=== PATIENT | male | born 1930 | race Hispanic/Latino ===

== ENCOUNTER 2018-06-06 16:44 | Inpatient (IN) | payer MEDICARE ==
[~2018-06-06] VITALS: Ht 167.6 cm; Wt 65.1 kg
[2018-06-06 17:54] LABS: APPEARANCE,URINE Clear (CLEAR); BILIRUBIN,URINE Negative (NEGATIVE); COLOR,URINE Yellow (YELLOW); GLUCOSE, URINE (UA) Negative (NEGATIVE); KETONES,URINE Negative (NEGATIVE); LEUKOCYTE ESTERASE ,URINE Negative (NEGATIVE); NITRATE,URINE Negative (NEGATIVE); OCCULT BLOOD,URINE Trace (NEGATIVE); PROTEIN,URINE POS 2+ (NEGATIVE); UROBILINOGEN,URINE 0.2 mg/dL (0.2-1.0)
[2018-06-06 17:58] LABS: BASOPHILS % (AUTO) 0.3 % (0.0-5.0); EOSINOPHILS % (AUTO) 1.3 % (0.0-8.0); HEMATOCRIT 27.5 % (42-54); LYMPHOCYTES % (AUTO) 27.8 % (21.0-51.0); MEAN CORPUSCULAR HEMOGLOBIN 32.7 pg (27.0-33.0); MEAN CORPUSCULAR HGB CONC 33.3 g/dL (32.0-36.0); MEAN CORPUSCULAR VOLUME 98.3 fL (79-99); MONOCYTES % (AUTO) 6.8 % (3.0-13.0); NEUTROPHILS % (AUTO) 63.8 % (40.0-77.0); PLATELET COUNT (AUTO) 132 K/uL (130-400); RED CELL DISTRIBUTION WIDTH 14.1 % (11.0-15.5); WHITE BLOOD COUNT (AUTO) 7.1 K/uL (4.8-10.8)
[2018-06-06 18:02] LABS: CREATININE 2.1 mg/dL (0.5-1.5); INR 1.04 (0.85-1.15); PARTIAL THROMBOPLASTIN TIME 29.3 SEC (26.3-35.5); POTASSIUM 4.8 mmol/L (3.5-5.1); PROTHROMBIN TIME 10.9 SEC (9.6-11.6)
[2018-06-06 18:06] LABS: ALBUMIN 3.9 g/dL (3.5-5.0); BILIRUBIN,TOTAL 0.4 mg/dL (0.2-1.0); TOTAL PROTEIN, SERUM 7.8 g/dL (6.0-8.3)
[2018-06-06 18:10] LABS: BACTERIA,URINE None Seen /HPF (None Seen); MUCUS,URINE Rare LPF (None Seen); RBC,URINE 0-1 /HPF (0-1); SQUAMOUS EPITHELIAL CELL,UR 0-2 /HPF (0-2); WBC,URINE 0-1 /HPF (0-1)
[2018-06-06] MEDS ORDERED: ENOXAPARIN SODIUM 40 MG/0.4 ML SYRINGE SQ ONE (19:08)
[2018-06-06] MEDS ORDERED: ENOXAPARIN SODIUM 30 MG/0.3 ML SQ ONE (19:09)
[2018-06-06 23:40] VITALS: BP 157/69
[2018-06-07 04:00] VITALS: BP 119/43
[2018-06-07 04:03] LABS: BASOPHILS % (AUTO) 0.5 % (0.0-5.0); EOSINOPHILS % (AUTO) 2.5 % (0.0-8.0); HEMATOCRIT 24.6 % (42-54); LYMPHOCYTES % (AUTO) 32.3 % (21.0-51.0); MEAN CORPUSCULAR HEMOGLOBIN 33.4 pg (27.0-33.0); MEAN CORPUSCULAR HGB CONC 34.2 g/dL (32.0-36.0); MEAN CORPUSCULAR VOLUME 97.9 fL (79-99); MONOCYTES % (AUTO) 8.4 % (3.0-13.0); NEUTROPHILS % (AUTO) 56.3 % (40.0-77.0); PLATELET COUNT (AUTO) 135 K/uL (130-400); RED BLOOD CELL COUNT(AUTO) 2.51 MIL/uL (4.50-6.20); WHITE BLOOD COUNT (AUTO) 6.1 K/uL (4.8-10.8)
[2018-06-07 04:25] LABS: CREATININE 1.9 mg/dL (0.5-1.5); POTASSIUM 5.2 mmol/L (3.5-5.1)
[2018-06-07] MEDS ORDERED: LOSA25TA16 PO (05:31)
[2018-06-07] MEDS ORDERED: MULT-1289 PO (05:31)
[2018-06-07] MEDS ORDERED: LEVO50 PO (05:31)
[2018-06-07] MEDS ORDERED: FERR-82 PO (05:31)
[2018-06-07 08:03] VITALS: BP 141/54
[2018-06-07] MEDS: PANTOPRAZOLE SODIUM 40 MG TABLET.DR PO SCH (09:16)
[2018-06-07] MEDS: CLOPIDOGREL BISULFATE 75 MG TAB PO SCH (09:16)
[2018-06-07] MEDS: ENOXAPARIN SODIUM 80 MG/0.8 ML SQ SCH ×2 (09:17→21:07)
[2018-06-07 12:47] VITALS: BP 136/57
[2018-06-07 16:00] VITALS: BP 144/54
[2018-06-07] MEDS ORDERED: WARFARIN SODIUM 5 MG TAB PO SCH (18:15)
[2018-06-07 19:45] VITALS: BP 157/64
[2018-06-07 23:48] VITALS: BP 126/55
[2018-06-08 03:56] VITALS: BP 120/52
[2018-06-08 04:06] LABS: HEMATOCRIT 25.2 % (42-54); MEAN CORPUSCULAR HEMOGLOBIN 32.8 pg (27.0-33.0); MEAN CORPUSCULAR HGB CONC 33.5 g/dL (32.0-36.0); MEAN CORPUSCULAR VOLUME 97.9 fL (79-99); PLATELET COUNT (AUTO) 123 K/uL (130-400); RED BLOOD CELL COUNT(AUTO) 2.58 MIL/uL (4.50-6.20); RED CELL DISTRIBUTION WIDTH 14.6 % (11.0-15.5); WHITE BLOOD COUNT (AUTO) 6.9 K/uL (4.8-10.8)
[2018-06-08 04:15] LABS: INR 1.1 (0.85-1.15); PARTIAL THROMBOPLASTIN TIME 40.1 SEC (26.3-35.5); PROTHROMBIN TIME 11.5 SEC (9.6-11.6)
[2018-06-08 04:16] LABS: CREATININE 1.9 mg/dL (0.5-1.5); POTASSIUM 4.7 mmol/L (3.5-5.1)
[2018-06-08] MEDS: LEVOTHYROXINE 50 MCG TABLET PO SCH (07:03)
[2018-06-08 08:15] VITALS: BP 135/59
[2018-06-08] MEDS: CLOPIDOGREL BISULFATE 75 MG TAB PO SCH (10:01)
[2018-06-08] MEDS: FERROUS SULFATE 325 MG TABLET.DR PO SCH (10:01)
[2018-06-08] MEDS: MULTIVITAMIN TABLET PO SCH (10:01)
[2018-06-08] MEDS: PANTOPRAZOLE SODIUM 40 MG TABLET.DR PO SCH (10:01)
[2018-06-08] MEDS: ENOXAPARIN SODIUM 80 MG/0.8 ML SQ SCH ×2 (10:02→20:41)
[2018-06-08 11:03] VITALS: BP 138/70
[2018-06-08 16:47] VITALS: BP 141/66
[2018-06-08] MEDS: LOSARTAN 50 MG TABLET PO SCH (18:27)
[2018-06-08] MEDS ORDERED: WARFARIN SODIUM 5 MG TAB PO ONE (19:00)
[2018-06-08 19:30] VITALS: BP 147/63
[2018-06-09] VITALS: BP 124/54
[2018-06-09 04:00] VITALS: BP 102/45
[2018-06-09 04:13] LABS: HEMATOCRIT 24.4 % (42-54); MEAN CORPUSCULAR HEMOGLOBIN 33.1 pg (27.0-33.0); MEAN CORPUSCULAR HGB CONC 33.8 g/dL (32.0-36.0); MEAN CORPUSCULAR VOLUME 97.9 fL (79-99); PLATELET COUNT (AUTO) 137 K/uL (130-400); RED BLOOD CELL COUNT(AUTO) 2.49 MIL/uL (4.50-6.20); RED CELL DISTRIBUTION WIDTH 14.5 % (11.0-15.5)
[2018-06-09 04:34] LABS: INR 1.13 (0.85-1.15); PARTIAL THROMBOPLASTIN TIME 41.2 SEC (26.3-35.5); PROTHROMBIN TIME 11.8 SEC (9.6-11.6)
[2018-06-09 04:53] LABS: HEMOGLOBIN A1C 5.4 % (4.0-6.0)
[2018-06-09] MEDS: LEVOTHYROXINE 50 MCG TABLET PO SCH (06:25)
[2018-06-09 08:34] VITALS: BP 133/64
[2018-06-09] MEDS: FERROUS SULFATE 325 MG TABLET.DR PO SCH (09:46)
[2018-06-09] MEDS: CLOPIDOGREL BISULFATE 75 MG TAB PO SCH (09:46)
[2018-06-09] MEDS: PANTOPRAZOLE SODIUM 40 MG TABLET.DR PO SCH (09:46)
[2018-06-09] MEDS: MULTIVITAMIN TABLET PO SCH (09:46)
[2018-06-09] MEDS: LOSARTAN 50 MG TABLET PO SCH (09:46)
[2018-06-09] MEDS: ENOXAPARIN SODIUM 80 MG/0.8 ML SQ SCH ×2 (09:47→21:00)
[2018-06-09 12:00] VITALS: BP 107/50
[2018-06-09 15:59] VITALS: BP 136/54
[2018-06-09] MEDS ORDERED: WARFARIN SODIUM 5 MG TAB PO SCH (16:00)
[2018-06-09] MEDS: WARFARIN SODIUM 5 MG TAB PO SCH (17:17)
[2018-06-09 21:11] VITALS: BP 141/70
[2018-06-10 01:30] VITALS: BP 128/56
[2018-06-10 04:36] LABS: BASOPHILS % (AUTO) 0.3 % (0.0-5.0); EOSINOPHILS % (AUTO) 2.1 % (0.0-8.0); HEMATOCRIT 24.5 % (42-54); LYMPHOCYTES % (AUTO) 40.2 % (21.0-51.0); MEAN CORPUSCULAR HEMOGLOBIN 33.1 pg (27.0-33.0); MEAN CORPUSCULAR VOLUME 97.2 fL (79-99); MONOCYTES % (AUTO) 8.8 % (3.0-13.0); NEUTROPHILS % (AUTO) 48.6 % (40.0-77.0); PLATELET COUNT (AUTO) 123 K/uL (130-400); RED BLOOD CELL COUNT(AUTO) 2.52 MIL/uL (4.50-6.20); RED CELL DISTRIBUTION WIDTH 14.1 % (11.0-15.5); WHITE BLOOD COUNT (AUTO) 6.1 K/uL (4.8-10.8)
[2018-06-10 04:42] LABS: CREATININE 2.1 mg/dL (0.5-1.5); POTASSIUM 4.4 mmol/L (3.5-5.1)
[2018-06-10 04:44] LABS: INR 1.41 (0.85-1.15); PARTIAL THROMBOPLASTIN TIME 49.8 SEC (26.3-35.5); PROTHROMBIN TIME 14.7 SEC (9.6-11.6)
[2018-06-10 05:46] VITALS: BP 114/44
[2018-06-10] MEDS: LEVOTHYROXINE 50 MCG TABLET PO SCH (06:15)
[2018-06-10 08:51] VITALS: BP 147/66
[2018-06-10] MEDS: LOSARTAN 50 MG TABLET PO SCH (10:31)
[2018-06-10] MEDS: CLOPIDOGREL BISULFATE 75 MG TAB PO SCH (10:31)
[2018-06-10] MEDS: FERROUS SULFATE 325 MG TABLET.DR PO SCH (10:31)
[2018-06-10] MEDS: MULTIVITAMIN TABLET PO SCH (10:31)
[2018-06-10] MEDS: PANTOPRAZOLE SODIUM 40 MG TABLET.DR PO SCH (10:31)
[2018-06-10] MEDS: ENOXAPARIN SODIUM 80 MG/0.8 ML SQ SCH ×2 (10:32→21:48)
[2018-06-10 12:08] VITALS: BP 148/65
[2018-06-10] MEDS: WARFARIN SODIUM 5 MG TAB PO SCH (16:04)
[2018-06-10 16:14] VITALS: BP 145/50
[2018-06-10 19:00] VITALS: BP 140/61
[2018-06-11] VITALS: BP 120/52
[2018-06-11 04:00] VITALS: BP 119/49
[2018-06-11 06:07] LABS: BASOPHILS % (AUTO) 0.6 % (0.0-5.0); EOSINOPHILS % (AUTO) 2.6 % (0.0-8.0); HEMATOCRIT 25.5 % (42-54); LYMPHOCYTES % (AUTO) 38.3 % (21.0-51.0); MEAN CORPUSCULAR HEMOGLOBIN 32.8 pg (27.0-33.0); MEAN CORPUSCULAR HGB CONC 33.4 g/dL (32.0-36.0); MEAN CORPUSCULAR VOLUME 98.1 fL (79-99); MONOCYTES % (AUTO) 9.4 % (3.0-13.0); NEUTROPHILS % (AUTO) 49.1 % (40.0-77.0); PLATELET COUNT (AUTO) 137 K/uL (130-400); RED CELL DISTRIBUTION WIDTH 14.2 % (11.0-15.5); WHITE BLOOD COUNT (AUTO) 5.5 K/uL (4.8-10.8)
[2018-06-11 06:22] LABS: CREATININE 2.2 mg/dL (0.5-1.5); POTASSIUM 4.7 mmol/L (3.5-5.1)
[2018-06-11 06:24] LABS: INR 2.22 (0.85-1.15); PARTIAL THROMBOPLASTIN TIME 50.4 SEC (26.3-35.5); PROTHROMBIN TIME 22.9 SEC (9.6-11.6)
[2018-06-11] MEDS: LEVOTHYROXINE 50 MCG TABLET PO SCH (06:30)
[2018-06-11 07:30] VITALS: BP 129/65
[2018-06-11] MEDS: LOSARTAN 50 MG TABLET PO SCH (09:19)
[2018-06-11] MEDS: PANTOPRAZOLE SODIUM 40 MG TABLET.DR PO SCH (09:19)
[2018-06-11] MEDS: FERROUS SULFATE 325 MG TABLET.DR PO SCH (09:19)
[2018-06-11] MEDS: CLOPIDOGREL BISULFATE 75 MG TAB PO SCH (09:19)
[2018-06-11] MEDS: ENOXAPARIN SODIUM 80 MG/0.8 ML SQ SCH (09:19)
[2018-06-11] MEDS: MULTIVITAMIN TABLET PO SCH (09:19)
== END 2018-06-11 10:40 | disposition home or self-care (01) | DRG 299 ==
LOC: EDH 16:44 → EDHIP 19:28 → OBSVTOIN 19:28 → 2DH 23:03 → 3AH 06-08 20:04
PROVIDERS: ADMIT Internal Medicine; ATTEND Internal Medicine
DX: I82.431 Acute embolism and thrombosis of right popliteal vein (principal); N17.0 Acute kidney failure with tubular necrosis; N18.4 Chronic kidney disease, stage 4 (severe); E11.22 Type 2 diabetes mellitus with diabetic chronic kidney disease; I12.9 Hypertensive chronic kidney disease with stage 1 through stage 4 chronic kidney disease, or unspecified chronic kidney disease; E03.9 Hypothyroidism, unspecified; Z79.01 Long term (current) use of anticoagulants
CPT/HCPCS: 36415; 80048; 80053; 81001; 82948; 83036; 85025; 85027; 85610; 85730; 93005; 93971; J1650

== ENCOUNTER 2020-09-19 18:16 | Inpatient (IN) | payer MEDICARE ==
[~2020-09-19] VITALS: Ht 154.9 cm; Wt 59.0 kg
[~2020-09-19 18:16] MED LIST: FERR-82 PO; LEVO50 PO; LOSA25TA41 PO; MULT-1289 PO
[2020-09-19 18:52] LABS: HEMATOCRIT 22.5 % (42-54); LYMPHOCYTES % (AUTO) 6.1 % (21.0-51.0); MEAN CORPUSCULAR HEMOGLOBIN 33.3 pg (27.0-33.0); MEAN CORPUSCULAR HGB CONC 35.1 g/dL (32.0-36.0); MEAN CORPUSCULAR VOLUME 94.9 fL (79-99); MONOCYTES % (AUTO) 6.5 % (3.0-13.0); PLATELET COUNT (AUTO) 84 K/uL (130-400); RED BLOOD CELL COUNT(AUTO) 2.37 MIL/uL (4.50-6.20); RED CELL DISTRIBUTION WIDTH 14.7 % (11.0-15.5); WHITE BLOOD COUNT (AUTO) 8.3 K/uL (4.8-10.8)
[2020-09-19 19:01] LABS: CREATININE 2.9 mg/dL (0.5-1.5); POTASSIUM 4.8 mmol/L (3.5-5.1)
[2020-09-19 19:05] LABS: ALBUMIN 3.2 g/dL (3.5-5.0); BILIRUBIN,TOTAL 0.6 mg/dL (0.2-1.0); TOTAL PROTEIN, SERUM 6.6 g/dL (6.0-8.3)
[2020-09-19 19:36] LABS: MAGNESIUM 1.9 mg/dL (1.80-2.40); PHOSPHORUS 2.9 mg/dL (2.5-4.9)
[2020-09-19 19:57] LABS: APPEARANCE,URINE Cloudy (CLEAR); BILIRUBIN,URINE Negative (NEGATIVE); COLOR,URINE Yellow (YELLOW); GLUCOSE, URINE (UA) Negative (NEGATIVE); KETONES,URINE Negative (NEGATIVE); LEUKOCYTE ESTERASE ,URINE Large (NEGATIVE); NITRATE,URINE Negative (NEGATIVE); OCCULT BLOOD,URINE Small (NEGATIVE); PH,URINE 5.5 (5.0-8.0); PROTEIN,URINE POS 2+ mg/dL (NEGATIVE)
[2020-09-19 20:16] LABS: WBC,URINE 26-50 /HPF (0-1)
[2020-09-19] MEDS ORDERED: CEFTRIAXONE 1G VIAL ONE (20:16)
[2020-09-19 20:17] LABS: BACTERIA,URINE Many /HPF (None Seen); MUCUS,URINE Few LPF (None Seen); SQUAMOUS EPITHELIAL CELL,UR 0-2 /HPF (0-2)
[2020-09-19 22:12] LABS: HEMATOCRIT 21.1 % (42-54)
[2020-09-19] MEDS ORDERED: DIPHENHYDRAMINE HCL 25 MG CAPSULE PO PRN (22:15)
[2020-09-19] MEDS ORDERED: NITROGLYCERIN 0.4 MG SL TAB SL PRN (22:15)
[2020-09-19] MEDS: METOPROLOL TARTRATE 25 MG TAB PO SCH (22:15)
[2020-09-19] MEDS ORDERED: LACTATED RINGERS 1000ML 1,000 ML IV SCH (22:15)
[2020-09-19] MEDS ORDERED: MAG/ALUM/SIMETH 30 ML UDCUP PO PRN (22:15)
[2020-09-19] MEDS ORDERED: CEFTRIAXONE 1G VIAL IV SCH (22:15)
[2020-09-19] MEDS ORDERED: ACETAMINOPHEN 325 MG TAB PO PRN ×2 (22:15)
[2020-09-19] MEDS ORDERED: LACTULOSE 20 GM/30 ML UDCUP PO PRN (22:15)
[2020-09-19] MEDS ORDERED: ONDANSETRON 4MG INJ IV PRN (22:15)
[2020-09-19] MEDS ORDERED: DEXTROSE 50%-WATER 50 ML DISP.SYRIN IV PRN (22:45)
[2020-09-19] MEDS ORDERED: KCL 20 MEQ ERTAB PO PRN (22:45)
[2020-09-19] MEDS ORDERED: POTASSIUM CHLORIDE 10% ELIXIR 20 MEQ/15 ML UDCUP PO PRN (22:45)
[2020-09-19] MEDS ORDERED: POTASSIUM CHLORIDE 20MEQ/100ML 100 ML IV PRN (22:45)
[2020-09-19] MEDS ORDERED: GLUCAGON 1MG KIT 1 MG ML IM PRN (22:45)
[2020-09-19] MEDS ORDERED: INSULIN HUMULIN R 100 UNIT/ML 3ML ONE (22:54)
[2020-09-19] MEDS ORDERED: PHARMACY COMMUNICATION MISC SCH (23:30)
[2020-09-19] MEDS ORDERED: ZOSYN 3.375GM+NS 50ML 50 ML IV ONE (23:40)
[2020-09-19] MEDS ORDERED: LACTATED RINGERS 1000ML 1,000 ML IV ONE (23:40)
[2020-09-19] MEDS ORDERED: 0.9%NACL 100ML 100 ML IV ONE (23:58)
[2020-09-20] MEDS ORDERED: DiphenhydrAMINE HCL 50 MG/ML VIAL ONE (04:14)
[2020-09-20 04:31] LABS: BASOPHILS % (AUTO) 0.1 % (0.0-5.0); HEMATOCRIT 28.8 % (42-54); LYMPHOCYTES % (AUTO) 14.2 % (21.0-51.0); MEAN CORPUSCULAR HEMOGLOBIN 32.2 pg (27.0-33.0); MEAN CORPUSCULAR HGB CONC 34.4 g/dL (32.0-36.0); MEAN CORPUSCULAR VOLUME 93.8 fL (79-99); NEUTROPHILS % (AUTO) 74.5 % (40.0-77.0); PLATELET COUNT (AUTO) 83 K/uL (130-400); RED BLOOD CELL COUNT(AUTO) 3.07 MIL/uL (4.50-6.20); RED CELL DISTRIBUTION WIDTH 14.8 % (11.0-15.5); WHITE BLOOD COUNT (AUTO) 9.3 K/uL (4.8-10.8)
[2020-09-20 04:44] LABS: ALBUMIN 3.3 g/dL (3.5-5.0); BILIRUBIN,TOTAL 0.7 mg/dL (0.2-1.0); CREATININE 2.7 mg/dL (0.5-1.5); CRP QUANTITATIVE 61.1 mg/L (0.00-9.0); POTASSIUM 4.3 mmol/L (3.5-5.1); TOTAL PROTEIN, SERUM 6.9 g/dL (6.0-8.3)
[2020-09-20] MEDS: ZOSYN 3.375GM+NS 50ML 50 ML IV SCH ×3 (05:00→20:42)
[2020-09-20] MEDS ORDERED: HEPARIN 25,000 UNITS/250ML D5W 250 ML IV SCH (05:45)
[2020-09-20] MEDS ORDERED: HEPARIN 25,000 UNITS/250ML D5W 250 ML IV ONE (06:40)
[2020-09-20 07:10] LABS: INR 1.38 (0.85-1.15); PROTHROMBIN TIME 14.3 SEC (9.6-11.6)
[2020-09-20 07:11] LABS: PARTIAL THROMBOPLASTIN TIME 31.5 SEC (26.3-35.5)
[2020-09-20] MEDS: INSULIN HUMULIN R 100 UNIT/ML 3ML SQ SCH ×4 (07:30→20:47)
[2020-09-20] MEDS ORDERED: ENOXAPARIN SODIUM 40 MG/0.4 ML SYRINGE SQ ONE (07:45)
[2020-09-20] MEDS ORDERED: FAMOTIDINE 20MG TAB ONE (07:45)
[2020-09-20] MEDS ORDERED: ASPIRIN 325 MG TABLET ONE (07:45)
[2020-09-20] MEDS ORDERED: METOPROLOL TARTRATE 25 MG TAB ONE (07:46)
[2020-09-20] MEDS: FAMOTIDINE 20MG TAB PO SCH ×2 (09:00→20:42)
[2020-09-20] MEDS: METOPROLOL TARTRATE 25 MG TAB PO SCH ×2 (09:00→21:00)
[2020-09-20] MEDS: ASPIRIN 325 MG TABLET PO SCH (09:00)
[2020-09-20] MEDS ORDERED: ENOXAPARIN SODIUM 40 MG/0.4 ML SYRINGE SQ SCH (09:00)
[2020-09-20] MEDS ORDERED: ZOSYN 3.375GM+NS 50ML 50 ML IV ONE (11:55)
[2020-09-20 13:13] LABS: INR 1.31 (0.85-1.15); PROTHROMBIN TIME 13.7 SEC (9.6-11.6)
[2020-09-20 13:35] LABS: PARTIAL THROMBOPLASTIN TIME 91.3 SEC (26.3-35.5)
[2020-09-20] MEDS ORDERED: ACETAMINOPHEN 325 MG TAB ONE (13:41)
[2020-09-20] MEDS ORDERED: TICAGRELOR 90 MG TABLET PO SCH (15:45)
[2020-09-20 16:24] VITALS: BP 118/58
[2020-09-20] MEDS ORDERED: SODI650T PO (17:58)
[2020-09-20] MEDS ORDERED: LEVO50TA11 PO (17:58)
[2020-09-20] MEDS ORDERED: LOSA100T58 PO (17:58)
[2020-09-20] MEDS ORDERED: FERR325T22 PO (17:58)
[2020-09-20] MEDS ORDERED: MVIT PO (17:58)
[2020-09-20] MEDS ORDERED: FOLI1TAB61 PO (17:58)
[2020-09-20] MEDS ORDERED: OMEP20TA25 PO (17:58)
[2020-09-20 20:00] VITALS: BP 150/69
[2020-09-20] MEDS: TICAGRELOR 90 MG TABLET PO SCH (20:42)
[2020-09-20 23:18] VITALS: BP 130/73
[2020-09-21 02:14] LABS: INR 1.41 (0.85-1.15); PROTHROMBIN TIME 14.6 SEC (9.6-11.6)
[2020-09-21 02:16] LABS: PARTIAL THROMBOPLASTIN TIME 73.5 SEC (26.3-35.5)
[2020-09-21] MEDS: DiphenhydrAMINE HCL 50 MG/ML VIAL IV PRN (02:42)
[2020-09-21 04:00] VITALS: BP 152/71
[2020-09-21] MEDS: ZOSYN 3.375GM+NS 50ML 50 ML IV SCH ×3 (04:23→23:29)
[2020-09-21] MEDS: GUAIFENESIN-DM 200/20 MG 10 ML PO PRN (04:24)
[2020-09-21] MEDS: INSULIN HUMULIN R 100 UNIT/ML 3ML SQ SCH ×4 (05:21→21:00)
[2020-09-21 05:32] LABS: BASOPHILS % (AUTO) 0.1 % (0.0-5.0); EOSINOPHILS % (AUTO) 2.3 % (0.0-8.0); HEMATOCRIT 29.7 % (42-54); LYMPHOCYTES % (AUTO) 3.5 % (21.0-51.0); MEAN CORPUSCULAR HEMOGLOBIN 32.2 pg (27.0-33.0); MONOCYTES % (AUTO) 3.6 % (3.0-13.0); PLATELET COUNT (AUTO) 94 K/uL (130-400); RED BLOOD CELL COUNT(AUTO) 3.23 MIL/uL (4.50-6.20); RED CELL DISTRIBUTION WIDTH 15.1 % (11.0-15.5); WHITE BLOOD COUNT (AUTO) 10.3 K/uL (4.8-10.8)
[2020-09-21 06:07] LABS: ALBUMIN 3.2 g/dL (3.5-5.0); BILIRUBIN,TOTAL 1.3 mg/dL (0.2-1.0); CREATININE 2.8 mg/dL (0.5-1.5); CRP QUANTITATIVE 86.1 mg/L (0.00-9.0); MAGNESIUM 1.7 mg/dL (1.80-2.40); PHOSPHORUS 3.7 mg/dL (2.5-4.9); POTASSIUM 4.1 mmol/L (3.5-5.1); TOTAL PROTEIN, SERUM 6.8 g/dL (6.0-8.3)
[2020-09-21 07:30] VITALS: BP 149/72
[2020-09-21 07:52] LABS: % IRON SATURATION 15.7 % (30-44)
[2020-09-21] MEDS: ASPIRIN 325 MG TABLET PO SCH (09:06)
[2020-09-21] MEDS: FAMOTIDINE 20MG TAB PO SCH ×2 (09:07→23:29)
[2020-09-21] MEDS: Vitamin B Complex/Vit C/Folic Acid PO SCH (09:07)
[2020-09-21] MEDS: METOPROLOL TARTRATE 25 MG TAB PO SCH ×2 (09:07→23:29)
[2020-09-21] MEDS: TICAGRELOR 90 MG TABLET PO SCH ×2 (09:07→23:29)
[2020-09-21 09:53] LABS: INR 1.51 (0.85-1.15); PROTHROMBIN TIME 15.6 SEC (9.6-11.6)
[2020-09-21 10:07] LABS: PARTIAL THROMBOPLASTIN TIME 117.6 SEC (26.3-35.5)
[2020-09-21 11:00] VITALS: BP 135/79
[2020-09-21 16:00] VITALS: BP 126/55
[2020-09-21 20:03] VITALS: BP 115/68
[2020-09-21] MEDS: ATORVASTATIN 20 MG TABLET PO SCH (23:29)
[2020-09-22 00:15] VITALS: BP 122/69
[2020-09-22 04:00] VITALS: BP 102/71
[2020-09-22] MEDS: ZOSYN 3.375GM+NS 50ML 50 ML IV SCH ×3 (05:18→20:24)
[2020-09-22 06:36] LABS: BASOPHILS % (AUTO) 0.2 % (0.0-5.0); EOSINOPHILS % (AUTO) 0.5 % (0.0-8.0); HEMATOCRIT 30.5 % (42-54); LYMPHOCYTES % (AUTO) 3.9 % (21.0-51.0); MEAN CORPUSCULAR HEMOGLOBIN 31.7 pg (27.0-33.0); MEAN CORPUSCULAR HGB CONC 34.8 g/dL (32.0-36.0); MEAN CORPUSCULAR VOLUME 91.3 fL (79-99); MONOCYTES % (AUTO) 2.3 % (3.0-13.0); NEUTROPHILS % (AUTO) 92.6 % (40.0-77.0); PLATELET COUNT (AUTO) 110 K/uL (130-400); RED BLOOD CELL COUNT(AUTO) 3.34 MIL/uL (4.50-6.20); RED CELL DISTRIBUTION WIDTH 14.9 % (11.0-15.5); WHITE BLOOD COUNT (AUTO) 12.9 K/uL (4.8-10.8)
[2020-09-22] MEDS: INSULIN HUMULIN R 100 UNIT/ML 3ML SQ SCH ×4 (06:37→19:41)
[2020-09-22 07:14] LABS: ALBUMIN 2.8 g/dL (3.5-5.0); BILIRUBIN,TOTAL 1.6 mg/dL (0.2-1.0); CREATININE 2.8 mg/dL (0.5-1.5); CRP QUANTITATIVE 169.4 mg/L (0.00-9.0); PHOSPHORUS 3.6 mg/dL (2.5-4.9); POTASSIUM 4.3 mmol/L (3.5-5.1); TOTAL PROTEIN, SERUM 6.5 g/dL (6.0-8.3)
[2020-09-22 08:00] VITALS: BP 158/60
[2020-09-22 12:00] VITALS: BP 141/90
[2020-09-22] MEDS: Vitamin B Complex/Vit C/Folic Acid PO SCH (12:01)
[2020-09-22] MEDS: METOPROLOL TARTRATE 25 MG TAB PO SCH ×3 (12:01→20:25)
[2020-09-22] MEDS: FAMOTIDINE 20MG TAB PO SCH ×2 (12:02→20:25)
[2020-09-22] MEDS: TICAGRELOR 90 MG TABLET PO SCH ×2 (12:02→20:25)
[2020-09-22] MEDS: ASPIRIN 81MG CHEW TAB PO SCH (14:30)
[2020-09-22] MEDS ORDERED: METOPROLOL TARTRATE 25 MG TAB PO SCH (15:30)
[2020-09-22 17:11] VITALS: BP 143/74
[2020-09-22 20:00] VITALS: BP 136/75
[2020-09-22] MEDS: ATORVASTATIN 20 MG TABLET PO SCH (20:25)
[2020-09-23] VITALS: BP 120/75
[2020-09-23 02:23] LABS: BASOPHILS % (AUTO) 0.2 % (0.0-5.0); EOSINOPHILS % (AUTO) 0.6 % (0.0-8.0); HEMATOCRIT 29.9 % (42-54); LYMPHOCYTES % (AUTO) 7.5 % (21.0-51.0); MEAN CORPUSCULAR HEMOGLOBIN 32.5 pg (27.0-33.0); MEAN CORPUSCULAR HGB CONC 35.5 g/dL (32.0-36.0); MEAN CORPUSCULAR VOLUME 91.7 fL (79-99); MONOCYTES % (AUTO) 3.1 % (3.0-13.0); NEUTROPHILS % (AUTO) 88.2 % (40.0-77.0); PLATELET COUNT (AUTO) 107 K/uL (130-400); RED BLOOD CELL COUNT(AUTO) 3.26 MIL/uL (4.50-6.20); RED CELL DISTRIBUTION WIDTH 14.8 % (11.0-15.5); WHITE BLOOD COUNT (AUTO) 11.7 K/uL (4.8-10.8)
[2020-09-23 02:31] LABS: CREATININE 2.6 mg/dL (0.5-1.5); POTASSIUM 3.6 mmol/L (3.5-5.1)
[2020-09-23 04:00] VITALS: BP 120/72
[2020-09-23] MEDS: ZOSYN 3.375GM+NS 50ML 50 ML IV SCH ×3 (05:03→20:35)
[2020-09-23] MEDS: INSULIN HUMULIN R 100 UNIT/ML 3ML SQ SCH ×4 (06:43→20:37)
[2020-09-23 07:30] VITALS: BP 160/61
[2020-09-23] MEDS: METOPROLOL TARTRATE 25 MG TAB PO SCH ×4 (09:00→20:36)
[2020-09-23] MEDS: ASPIRIN 81MG CHEW TAB PO SCH (09:26)
[2020-09-23] MEDS: FAMOTIDINE 20MG TAB PO SCH ×2 (09:26→20:36)
[2020-09-23] MEDS: TICAGRELOR 90 MG TABLET PO SCH ×2 (09:26→20:36)
[2020-09-23] MEDS: Vitamin B Complex/Vit C/Folic Acid PO SCH (09:26)
[2020-09-23 11:30] VITALS: BP 137/65
[2020-09-23 16:00] VITALS: BP 114/65
[2020-09-23] MEDS: ATORVASTATIN 20 MG TABLET PO SCH (20:36)
[2020-09-23] MEDS: APIXABAN 2.5 MG TABLET PO SCH (20:36)
[2020-09-23 20:38] VITALS: BP 135/50
[2020-09-24] VITALS (7 sets, daily range): BP systolic 118–140; BP diastolic 48–84
[2020-09-24 03:40] LABS: BASOPHILS % (AUTO) 0.2 % (0.0-5.0); EOSINOPHILS % (AUTO) 0.2 % (0.0-8.0); HEMATOCRIT 30.5 % (42-54); LYMPHOCYTES % (AUTO) 10.2 % (21.0-51.0); MEAN CORPUSCULAR HEMOGLOBIN 30.8 pg (27.0-33.0); MEAN CORPUSCULAR HGB CONC 33.4 g/dL (32.0-36.0); MEAN CORPUSCULAR VOLUME 92.1 fL (79-99); MONOCYTES % (AUTO) 4.7 % (3.0-13.0); NEUTROPHILS % (AUTO) 83.9 % (40.0-77.0); NUCLEATED RED BLOOD CELLS 0.3 % (0.0-0.19); PLATELET COUNT (AUTO) 113 K/uL (130-400); RED BLOOD CELL COUNT(AUTO) 3.31 MIL/uL (4.50-6.20); RED CELL DISTRIBUTION WIDTH 14.8 % (11.0-15.5); WHITE BLOOD COUNT (AUTO) 10.5 K/uL (4.8-10.8)
[2020-09-24 03:54] LABS: PHOSPHORUS 2.9 mg/dL (2.5-4.9)
[2020-09-24] MEDS: ZOSYN 3.375GM+NS 50ML 50 ML IV SCH ×2 (04:47→12:04)
[2020-09-24] MEDS: INSULIN HUMULIN R 100 UNIT/ML 3ML SQ SCH ×4 (05:51→19:22)
[2020-09-24] MEDS: METOPROLOL TARTRATE 25 MG TAB PO SCH ×4 (08:29→19:37)
[2020-09-24] MEDS: Vitamin B Complex/Vit C/Folic Acid PO SCH (08:30)
[2020-09-24] MEDS: APIXABAN 2.5 MG TABLET PO SCH ×2 (08:30→19:38)
[2020-09-24] MEDS: FAMOTIDINE 20MG TAB PO SCH ×2 (08:30→19:37)
[2020-09-24] MEDS: ASPIRIN 81MG CHEW TAB PO SCH (08:30)
[2020-09-24] MEDS: TICAGRELOR 90 MG TABLET PO SCH ×2 (08:31→19:38)
[2020-09-24] MEDS: GUAIFENESIN-DM 200/20 MG 10 ML PO PRN (12:08)
[2020-09-24] MEDS: CEFTRIAXONE 1G VIAL IVP SCH (15:16)
[2020-09-24] MEDS: ATORVASTATIN 20 MG TABLET PO SCH (19:37)
[2020-09-25] MEDS: DiphenhydrAMINE HCL 50 MG/ML VIAL IV PRN (00:01)
[2020-09-25 05:21] VITALS: BP 129/54
[2020-09-25 05:46] LABS: BASOPHILS % (AUTO) 0.2 % (0.0-5.0); EOSINOPHILS % (AUTO) 1.1 % (0.0-8.0); HEMATOCRIT 29.8 % (42-54); LYMPHOCYTES % (AUTO) 12.9 % (21.0-51.0); MEAN CORPUSCULAR HEMOGLOBIN 31.7 pg (27.0-33.0); MEAN CORPUSCULAR HGB CONC 34.6 g/dL (32.0-36.0); MEAN CORPUSCULAR VOLUME 91.7 fL (79-99); MONOCYTES % (AUTO) 5.6 % (3.0-13.0); NEUTROPHILS % (AUTO) 79.2 % (40.0-77.0); PLATELET COUNT (AUTO) 118 K/uL (130-400); RED BLOOD CELL COUNT(AUTO) 3.25 MIL/uL (4.50-6.20); RED CELL DISTRIBUTION WIDTH 14.6 % (11.0-15.5); WHITE BLOOD COUNT (AUTO) 10.6 K/uL (4.8-10.8)
[2020-09-25] MEDS: INSULIN HUMULIN R 100 UNIT/ML 3ML SQ SCH ×3 (05:48→16:30)
[2020-09-25 06:11] LABS: CREATININE 2.3 mg/dL (0.5-1.5); MAGNESIUM 1.9 mg/dL (1.80-2.40); PHOSPHORUS 2.9 mg/dL (2.5-4.9); POTASSIUM 3.4 mmol/L (3.5-5.1)
[2020-09-25 08:00] VITALS: BP 147/64
[2020-09-25] MEDS: ASPIRIN 81MG CHEW TAB PO SCH (08:48)
[2020-09-25] MEDS: Vitamin B Complex/Vit C/Folic Acid PO SCH (08:48)
[2020-09-25] MEDS: APIXABAN 2.5 MG TABLET PO SCH (08:48)
[2020-09-25] MEDS: METOPROLOL TARTRATE 25 MG TAB PO SCH ×2 (08:48→08:49)
[2020-09-25] MEDS: FAMOTIDINE 20MG TAB PO SCH (08:48)
[2020-09-25] MEDS: TICAGRELOR 90 MG TABLET PO SCH (08:49)
[2020-09-25 12:00] VITALS: BP 128/66
[2020-09-25] MEDS: CEFTRIAXONE 1G VIAL IVP SCH (15:29)
[2020-09-25 16:00] VITALS: BP 145/60
[2021-05-22] MEDS ORDERED: MAGN400T56 PO (10:56)
[2021-05-22] MEDS ORDERED: CETI10TA87 PO (10:56)
== END 2020-09-25 17:15 | DRG 871 ==
LOC: EDH 18:16 → EDHIP 22:07 → 4CH 09-20 15:32
PROVIDERS: ADMIT Family Medicine; ATTEND Family Medicine
PROC: 30233N1 Transfusion of Nonautologous Red Blood Cells into Peripheral Vein, Percutaneous Approach (ICD-10-PCS; principal; 2020-09-19)
DX: A41.59 Other Gram-negative sepsis (principal); I21.A1 Myocardial infarction type 2; G93.41 Metabolic encephalopathy; N17.9 Acute kidney failure, unspecified; I12.0 Hypertensive chronic kidney disease with stage 5 chronic kidney disease or end stage renal disease; N18.5 Chronic kidney disease, stage 5; N13.6 Pyonephrosis; E78.5 Hyperlipidemia, unspecified; W18.30XA Fall on same level, unspecified, initial encounter; D63.8 Anemia in other chronic diseases classified elsewhere; R29.6 Repeated falls; I48.0 Paroxysmal atrial fibrillation; I35.0 Nonrheumatic aortic (valve) stenosis; E11.22 Type 2 diabetes mellitus with diabetic chronic kidney disease; D69.6 Thrombocytopenia, unspecified; D63.1 Anemia in chronic kidney disease; R53.81 Other malaise; N28.1 Cyst of kidney, acquired; R77.8 Other specified abnormalities of plasma proteins; Z04.3 Encounter for examination and observation following other accident; Z82.3 Family history of stroke; Z82.49 Family history of ischemic heart disease and other diseases of the circulatory system; Z86.718 Personal history of other venous thrombosis and embolism; Z91.81 History of falling; Y92.009 Unspecified place in unspecified non-institutional (private) residence as the place of occurrence of the external cause; Z90.49 Acquired absence of other specified parts of digestive tract; Y93.89 Activity, other specified; Y99.8 Other external cause status; Z79.899 Other long term (current) drug therapy
CPT/HCPCS: 36415; 70450; 71045; 72125; 74176; 76770; 80048; 80053; 81001; 82270; 82728; 82948; 83540; 83550; 83605; 83735; 83880; 84100; 84145; 84484; 84550; 85014; 85018; 85025; 85610; 85730; 86140; 86850; 86900; 86901; 86923; 87040; 87077; 87088; 87186; 93005; 93306; 93356; 97039; G0378; J0696; J1200; J1644; J1650; J1815; J2543; J7120; P9016

== ENCOUNTER 2021-05-21 17:09 | Inpatient (IN) | payer MEDICARE, OTHER ==
[~2021-05-21] VITALS: Ht 167.6 cm; Wt 58.2 kg
[~2021-05-21 17:09] MED LIST changes: -FERR-82 PO; +FERR325T22 PO; +FOLI1TAB61 PO; -LEVO50 PO; +LEVO50TA11 PO; +LOSA100T58 PO; -LOSA25TA41 PO; -MULT-1289 PO; +MVIT PO; +OMEP20TA25 PO; +SODI650T PO
[2021-05-21 17:33] VITALS: BP 125/49
[2021-05-21 18:07] VITALS: BP_SYST 119; BP_SYST 77; BP_DIAS 29; BP_DIAS 44
[2021-05-21 19:24] LABS: CREATININE 2.7 mg/dL (0.5-1.5); POTASSIUM 5.3 mmol/L (3.5-5.1)
[2021-05-21 19:29] LABS: ALBUMIN 2.9 g/dL (3.5-5.0); BILIRUBIN,TOTAL 0.6 mg/dL (0.2-1.0); TOTAL PROTEIN, SERUM 6.8 g/dL (6.0-8.3)
[2021-05-21 19:33] LABS: BASOPHILS % (AUTO) 0.4 % (0.0-5.0); EOSINOPHILS % (AUTO) 0.1 % (0.0-8.0); LYMPHOCYTES % (AUTO) 12.5 % (21.0-51.0); MEAN CORPUSCULAR HEMOGLOBIN 33.5 pg (27.0-33.0); MEAN CORPUSCULAR HGB CONC 32.1 g/dL (32.0-36.0); MEAN CORPUSCULAR VOLUME 104.3 fL (79-99); MONOCYTES % (AUTO) 4.5 % (3.0-13.0); NEUTROPHILS % (AUTO) 82.1 % (40.0-77.0); PLATELET COUNT (AUTO) 125 K/uL (130-400); RED BLOOD CELL COUNT(AUTO) 1.85 MIL/uL (4.50-6.20); RED CELL DISTRIBUTION WIDTH 16.6 % (11.0-15.5); WHITE BLOOD COUNT (AUTO) 8.4 K/uL (4.8-10.8)
[2021-05-21 19:37] LABS: HEMATOCRIT 19.3 % (42-54)
[2021-05-21] MEDS: 0.9%NACL 1000ML 1,000 ML IV SCH ×2 (19:49→22:24)
[2021-05-21 19:55] VITALS: BP 132/40
[2021-05-21 21:14] LABS: APPEARANCE,URINE Clear (CLEAR); BILIRUBIN,URINE Negative (NEGATIVE); COLOR,URINE Yellow (YELLOW); GLUCOSE, URINE (UA) Negative (NEGATIVE); KETONES,URINE Negative (NEGATIVE); LEUKOCYTE ESTERASE ,URINE Trace (NEGATIVE); NITRATE,URINE Negative (NEGATIVE); OCCULT BLOOD,URINE Negative (NEGATIVE); PROTEIN,URINE Negative (NEGATIVE)
[2021-05-21 21:33] LABS: BACTERIA,URINE Few /HPF (None Seen); RBC,URINE None Seen /HPF (0-1); SQUAMOUS EPITHELIAL CELL,UR None Seen /HPF (0-2); WBC,URINE 0-1 /HPF (0-1)
[2021-05-21] MEDS ORDERED: ACETAMINOPHEN 325 MG TAB PO PRN ×2 (22:00)
[2021-05-21] MEDS ORDERED: HYDRALAZINE 20MG/ML VIAL IV PRN (22:00)
[2021-05-21] MEDS ORDERED: ONDANSETRON 4MG INJ IV PRN (22:00)
[2021-05-21] MEDS ORDERED: NITROGLYCERIN 0.4 MG SL TAB SL PRN (22:00)
[2021-05-21] MEDS ORDERED: LACTATED RINGERS 1000ML 1,000 ML IV SCH (22:00)
[2021-05-21 22:21] LABS: INR 1.26 (0.85-1.15); PROTHROMBIN TIME 13.4 SEC (9.6-11.6)
[2021-05-21 22:22] LABS: PARTIAL THROMBOPLASTIN TIME 29.3 SEC (26.3-35.5)
[2021-05-21 22:27] LABS: % IRON SATURATION 45.8 % (30-44)
[2021-05-21 22:56] LABS: HEMOGLOBIN A1C 5.6 % (4.0-6.0)
[2021-05-22] VITALS (10 sets, daily range): BP systolic 100–133; BP diastolic 23–91
[2021-05-22] MEDS ORDERED: 0.9%NACL 100ML 100 ML ONE (04:52)
[2021-05-22] MEDS ORDERED: PANTOPRAZOLE 40 MG/VIAL ONE ×2 (04:52→21:14)
[2021-05-22 04:57] LABS: MEAN CORPUSCULAR HEMOGLOBIN 34.8 pg (27.0-33.0); MEAN CORPUSCULAR HGB CONC 31.4 g/dL (32.0-36.0); PLATELET COUNT (AUTO) 125 K/uL (130-400); RED BLOOD CELL COUNT(AUTO) 1.55 MIL/uL (4.50-6.20); RED CELL DISTRIBUTION WIDTH 17.2 % (11.0-15.5); WHITE BLOOD COUNT (AUTO) 13.6 K/uL (4.8-10.8)
[2021-05-22 05:03] LABS: HEMATOCRIT 17.2 % (42-54)
[2021-05-22] MEDS: PANTOPRAZOLE 40MG INJ 80 MG in 0.9%NACL 100ML 100 ML IV SCH ×2 (05:25→21:22)
[2021-05-22] MEDS ORDERED: 0.9% NACL 500ML IV.SOLN 500 ML IV ONE (05:32)
[2021-05-22] MEDS ORDERED: FUROSEMIDE 20MG VIAL ONE (05:41)
[2021-05-22] MEDS ORDERED: FUROSEMIDE 20MG VIAL IV ONE (06:00)
[2021-05-22] MEDS ORDERED: FUROSEMIDE 20MG VIAL IVP SCH (07:30)
[2021-05-22] MEDS ORDERED: METOPROLOL TARTRATE 25 MG TAB PO SCH (07:30)
[2021-05-22] MEDS ORDERED: MORPHINE 2 MG SYG IVP PRN (07:30)
[2021-05-22] MEDS: INSULIN HUMULIN R 100 UNIT/ML 3ML SQ SCH ×3 (07:30→17:00)
[2021-05-22] MEDS ORDERED: MAGN400T8 PO (10:56)
[2021-05-22] MEDS ORDERED: ASPI-1197 PO (10:56)
[2021-05-22] MEDS ORDERED: METO25TA6 PO (10:56)
[2021-05-22] MEDS ORDERED: ATOR20TA65 PO (10:56)
[2021-05-22] MEDS ORDERED: GUAI100S13 PO (10:56)
[2021-05-22] MEDS ORDERED: APIX2.5T PO (10:56)
[2021-05-22] MEDS ORDERED: ASPI-1005 PO (10:56)
[2021-05-22] MEDS ORDERED: LEVO75TA4 PO (10:56)
[2021-05-22] MEDS ORDERED: CETI10TA86 PO (10:56)
[2021-05-22] MEDS ORDERED: FERR325T22 PO (10:56)
[2021-05-22] MEDS ORDERED: VITA-300 PO (10:56)
[2021-05-22] MEDS ORDERED: SODI650T PO (10:56)
[2021-05-22 13:05] LABS: HEMATOCRIT 25.6 % (42-54); MEAN CORPUSCULAR HEMOGLOBIN 33.1 pg (27.0-33.0); MEAN CORPUSCULAR HGB CONC 33.6 g/dL (32.0-36.0); MEAN CORPUSCULAR VOLUME 98.5 fL (79-99); RED BLOOD CELL COUNT(AUTO) 2.6 MIL/uL (4.50-6.20); RED CELL DISTRIBUTION WIDTH 15.9 % (11.0-15.5); WHITE BLOOD COUNT (AUTO) 12.5 K/uL (4.8-10.8)
[2021-05-22 16:25] LABS: HEMATOCRIT 24.8 % (42-54); MEAN CORPUSCULAR HEMOGLOBIN 33.2 pg (27.0-33.0); MEAN CORPUSCULAR HGB CONC 33.5 g/dL (32.0-36.0); MEAN CORPUSCULAR VOLUME 99.2 fL (79-99); NUCLEATED RED BLOOD CELLS 0.2 % (0.0-0.19); RED BLOOD CELL COUNT(AUTO) 2.5 MIL/uL (4.50-6.20); RED CELL DISTRIBUTION WIDTH 16.3 % (11.0-15.5)
[2021-05-22] MEDS ORDERED: PANTOPRAZOLE 40 MG TAB DR PO SCH (21:00)
[2021-05-22] MEDS: EPOETIN ALFA-EPBX (ESRD) 10,000 UNIT/ML VIAL SQ SCH (21:11)
[2021-05-22] MEDS: ATORVASTATIN 40 MG TABLET PO SCH (21:21)
[2021-05-22 21:47] LABS: MEAN CORPUSCULAR HEMOGLOBIN 33.1 pg (27.0-33.0); MEAN CORPUSCULAR HGB CONC 33.6 g/dL (32.0-36.0); MEAN CORPUSCULAR VOLUME 98.4 fL (79-99); NUCLEATED RED BLOOD CELLS 0.2 % (0.0-0.19); RED BLOOD CELL COUNT(AUTO) 2.54 MIL/uL (4.50-6.20); RED CELL DISTRIBUTION WIDTH 17.2 % (11.0-15.5); WHITE BLOOD COUNT (AUTO) 13.5 K/uL (4.8-10.8)
[2021-05-23] VITALS (12 sets, daily range): BP systolic 107–154; BP diastolic 46–71
[2021-05-23 06:47] LABS: HEMATOCRIT 29.2 % (42-54); MEAN CORPUSCULAR HEMOGLOBIN 33.2 pg (27.0-33.0); MEAN CORPUSCULAR HGB CONC 32.9 g/dL (32.0-36.0); NUCLEATED RED BLOOD CELLS 0.2 % (0.0-0.19); RED BLOOD CELL COUNT(AUTO) 2.89 MIL/uL (4.50-6.20); RED CELL DISTRIBUTION WIDTH 17.8 % (11.0-15.5); WHITE BLOOD COUNT (AUTO) 13.8 K/uL (4.8-10.8)
[2021-05-23] MEDS ORDERED: PANTOPRAZOLE 40 MG/VIAL ONE ×2 (07:53→18:07)
[2021-05-23] MEDS ORDERED: 0.9%NACL 100ML 100 ML ONE ×2 (07:54→18:07)
[2021-05-23] MEDS: INSULIN HUMULIN R 100 UNIT/ML 3ML SQ SCH ×3 (07:56→17:13)
[2021-05-23] MEDS: PANTOPRAZOLE 40MG INJ 80 MG in 0.9%NACL 100ML 100 ML IV SCH (07:58)
[2021-05-23] MEDS: EPOETIN ALFA-EPBX (ESRD) 10,000 UNIT/ML VIAL SQ SCH (08:49)
[2021-05-23] MEDS ORDERED: METOPROLOL TARTRATE 1 MG/ML 5ML VIAL IV ONE (13:18)
[2021-05-23 14:08] LABS: CREATININE 2.4 mg/dL (0.5-1.5); POTASSIUM 4.3 mmol/L (3.5-5.1)
[2021-05-23] MEDS: ATORVASTATIN 40 MG TABLET PO SCH (21:52)
[2021-05-24] VITALS (20 sets, daily range): BP systolic 94–133; BP diastolic 47–98
[2021-05-24 03:38] LABS: HEMATOCRIT 24.5 % (42-54); MEAN CORPUSCULAR HGB CONC 33.1 g/dL (32.0-36.0); MEAN CORPUSCULAR VOLUME 102.9 fL (79-99); PLATELET COUNT (AUTO) 96 K/uL (130-400); RED BLOOD CELL COUNT(AUTO) 2.38 MIL/uL (4.50-6.20); RED CELL DISTRIBUTION WIDTH 17.6 % (11.0-15.5); WHITE BLOOD COUNT (AUTO) 10.7 K/uL (4.8-10.8)
[2021-05-24 03:52] LABS: INR 1.38 (0.85-1.15); PROTHROMBIN TIME 14.6 SEC (9.6-11.6)
[2021-05-24 04:06] LABS: CREATININE 2.3 mg/dL (0.5-1.5); PHOSPHORUS 2.6 mg/dL (2.5-4.9); POTASSIUM 4.1 mmol/L (3.5-5.1); THYROID STIMULATING HORMONE 0.11 uIU/mL (0.36-3.74)
[2021-05-24 04:13] LABS: BAND NEUTROPHILS % (MANUAL) 1 % (0-2); BASOPHILS % (MANUAL) 1 % (0-2); EOSINOPHILS % (MANUAL) 1 % (1-6); LYMPHOCYTES % (MANUAL) 7 % (22-44); MAN.DIFF COMMENT-IMPRESSION MANUAL DIFFERENTIAL; MONOCYTES % (MANUAL) 8 % (2-9); PLATELET MORPHOLOGY COMMENT DECREASED; SEGMENTED NEUTROPHILS % 82 % (40-70)
[2021-05-24] MEDS: INSULIN HUMULIN R 100 UNIT/ML 3ML SQ SCH ×4 (06:52→18:04)
[2021-05-24] MEDS: PANTOPRAZOLE 40MG INJ 80 MG in 0.9%NACL 100ML 100 ML IV SCH ×2 (07:43→22:04)
[2021-05-24] MEDS: FERROUS SULFATE 325 MG TABLET.DR PO SCH ×2 (08:06→18:03)
[2021-05-24] MEDS: SODIUM BICARBONATE 650 MG TAB PO SCH ×2 (09:00→21:55)
[2021-05-24] MEDS: GUAIFENESIN SUGAR-FREE 100 MG/5 ML UDCUP PO SCH ×2 (09:00→21:55)
[2021-05-24] MEDS: CETIRIZINE HCL 5 MG TABLET PO SCH (09:00)
[2021-05-24] MEDS: METOPROLOL TARTRATE 25 MG TAB PO SCH ×2 (10:43→21:00)
[2021-05-24] MEDS ORDERED: COMPOUND IV MISC 1 EACH IVSOLN MISC PRN (12:00)
[2021-05-24] MEDS ORDERED: GLYCOPYRROLATE 1 MG/5 ML SYRINGE ONE (12:32)
[2021-05-24] MEDS ORDERED: PROPOFOL 10 MG/ML 20ML VIAL IV ONE (12:32)
[2021-05-24] MEDS ORDERED: PEG 3350/NA SULF,BICARB,CL/KCL 4000 ML SOLN PO ONE ×2 (14:00→17:00)
[2021-05-24] MEDS ORDERED: FUROSEMIDE 40MG VIAL IV ONE (20:30)
[2021-05-24] MEDS: ATORVASTATIN 20 MG TABLET PO SCH (21:55)
[2021-05-25] VITALS (12 sets, daily range): BP systolic 91–143; BP diastolic 41–81
[2021-05-25 04:10] LABS: % IRON SATURATION 15.3 % (30-44)
[2021-05-25 05:58] LABS: BASOPHILS % (AUTO) 0.1 % (0.0-5.0); EOSINOPHILS % (AUTO) 0.6 % (0.0-8.0); HEMATOCRIT 25.9 % (42-54); LYMPHOCYTES % (AUTO) 12.4 % (21.0-51.0); MEAN CORPUSCULAR HEMOGLOBIN 33.1 pg (27.0-33.0); MEAN CORPUSCULAR VOLUME 103.2 fL (79-99); MONOCYTES % (AUTO) 8.3 % (3.0-13.0); NEUTROPHILS % (AUTO) 78.2 % (40.0-77.0); PLATELET COUNT (AUTO) 110 K/uL (130-400); RED BLOOD CELL COUNT(AUTO) 2.51 MIL/uL (4.50-6.20); RED CELL DISTRIBUTION WIDTH 17.5 % (11.0-15.5); WHITE BLOOD COUNT (AUTO) 10.3 K/uL (4.8-10.8)
[2021-05-25 06:07] LABS: CREATININE 2.1 mg/dL (0.5-1.5); POTASSIUM 4.1 mmol/L (3.5-5.1)
[2021-05-25] MEDS: INSULIN HUMULIN R 100 UNIT/ML 3ML SQ SCH ×2 (07:03→11:30)
[2021-05-25] MEDS: PANTOPRAZOLE 40MG INJ 80 MG in 0.9%NACL 100ML 100 ML IV SCH ×2 (07:41→21:53)
[2021-05-25] MEDS: FERROUS SULFATE 325 MG TABLET.DR PO SCH ×2 (08:00→21:53)
[2021-05-25] MEDS: METOPROLOL TARTRATE 25 MG TAB PO SCH ×3 (08:14→21:53)
[2021-05-25] MEDS: SODIUM BICARBONATE 650 MG TAB PO SCH ×2 (08:15→13:14)
[2021-05-25] MEDS: CETIRIZINE HCL 5 MG TABLET PO SCH ×2 (08:15→13:14)
[2021-05-25] MEDS: GUAIFENESIN SUGAR-FREE 100 MG/5 ML UDCUP PO SCH ×2 (08:15→13:13)
[2021-05-25] MEDS ORDERED: IRON SUCROSE COMPLEX 100 MG in 0.9%NACL 50ML 50 ML IV SCH (09:00)
[2021-05-25] MEDS ORDERED: PROPOFOL 10 MG/ML 20ML VIAL IV ONE (10:18)
[2021-05-25] MEDS: IRON SUCROSE COMPLEX 100 MG in 0.9%NACL 50ML 50 ML IV SCH (13:07)
[2021-05-25] MEDS ORDERED: PEG 3350/NA SULF,BICARB,CL/KCL 4000 ML SOLN PO ONE (15:20)
[2021-05-25] MEDS: ATORVASTATIN 20 MG TABLET PO SCH (21:53)
[2021-05-26] VITALS (16 sets, daily range): BP systolic 117–148; BP diastolic 51–80
[2021-05-26 04:20] LABS: HEMATOCRIT 25.9 % (42-54); MEAN CORPUSCULAR HEMOGLOBIN 32.8 pg (27.0-33.0); MEAN CORPUSCULAR HGB CONC 32.8 g/dL (32.0-36.0); NUCLEATED RED BLOOD CELLS 0.2 % (0.0-0.19); RED BLOOD CELL COUNT(AUTO) 2.59 MIL/uL (4.50-6.20); RED CELL DISTRIBUTION WIDTH 17.2 % (11.0-15.5); WHITE BLOOD COUNT (AUTO) 9.7 K/uL (4.8-10.8)
[2021-05-26 04:41] LABS: POTASSIUM 3.4 mmol/L (3.5-5.1)
[2021-05-26] MEDS: INSULIN HUMULIN R 100 UNIT/ML 3ML SQ SCH ×3 (05:58→16:46)
[2021-05-26] MEDS: SODIUM BICARBONATE 650 MG TAB PO SCH ×2 (07:26→22:17)
[2021-05-26] MEDS: CETIRIZINE HCL 5 MG TABLET PO SCH (07:26)
[2021-05-26] MEDS: METOPROLOL TARTRATE 25 MG TAB PO SCH ×2 (07:26→22:17)
[2021-05-26] MEDS: PANTOPRAZOLE 40MG INJ 80 MG in 0.9%NACL 100ML 100 ML IV SCH ×2 (07:26→14:37)
[2021-05-26] MEDS: FERROUS SULFATE 325 MG TABLET.DR PO SCH ×2 (07:26→15:56)
[2021-05-26] MEDS ORDERED: MAGNESIUM 2GM PREMIX 50ML 50 ML IV SCH (09:30)
[2021-05-26] MEDS: IRON SUCROSE COMPLEX 100 MG in 0.9%NACL 50ML 50 ML IV SCH (09:50)
[2021-05-26] MEDS ORDERED: PROPOFOL 10 MG/ML 20ML VIAL IV ONE ×2 (11:49→11:50)
[2021-05-26] MEDS ORDERED: COMPOUND IV REFRIGERATED 1 EACH IVSOLN MISC PRN (12:00)
[2021-05-26] MEDS: FUROSEMIDE 20MG VIAL IV SCH (17:44)
[2021-05-26] MEDS ORDERED: PANTOPRAZOLE 40MG INJ 80 MG in 0.9%NACL 100ML 100 ML IV SCH (18:30)
[2021-05-26] MEDS ORDERED: METOCLOPRAMIDE 10 MG/2 ML VIAL IVP PRN (20:30)
[2021-05-26] MEDS ORDERED: MAG/ALUM/SIMETH 30 ML UDCUP PO PRN (20:30)
[2021-05-26] MEDS: GUAIFENESIN SUGAR-FREE 100 MG/5 ML UDCUP PO SCH (22:17)
[2021-05-26] MEDS: ATORVASTATIN 20 MG TABLET PO SCH (22:17)
[2021-05-27] MEDS: LABETALOL 20MG SYG IV PRN ×3 (01:27→02:21)
[2021-05-27 02:58] LABS: HEMATOCRIT 25.8 % (42-54); MEAN CORPUSCULAR HEMOGLOBIN 32.7 pg (27.0-33.0); MEAN CORPUSCULAR HGB CONC 32.9 g/dL (32.0-36.0); MEAN CORPUSCULAR VOLUME 99.2 fL (79-99); RED BLOOD CELL COUNT(AUTO) 2.6 MIL/uL (4.50-6.20); RED CELL DISTRIBUTION WIDTH 17.6 % (11.0-15.5); WHITE BLOOD COUNT (AUTO) 10.2 K/uL (4.8-10.8)
[2021-05-27 03:06] LABS: CREATININE 2.2 mg/dL (0.5-1.5); POTASSIUM 3.2 mmol/L (3.5-5.1)
[2021-05-27] MEDS ORDERED: KCL 20 MEQ ERTAB PO SCH ×2 (03:30→08:00)
[2021-05-27 03:35] VITALS: BP 124/73
[2021-05-27] MEDS: FUROSEMIDE 20MG VIAL IV SCH ×2 (05:39→16:49)
[2021-05-27] MEDS: METOPROLOL TARTRATE 25 MG TAB PO SCH ×2 (07:21→20:35)
[2021-05-27] MEDS: FERROUS SULFATE 325 MG TABLET.DR PO SCH ×2 (07:21→16:49)
[2021-05-27] MEDS: CETIRIZINE HCL 5 MG TABLET PO SCH (07:21)
[2021-05-27] MEDS: SODIUM BICARBONATE 650 MG TAB PO SCH ×2 (07:21→20:35)
[2021-05-27] MEDS: GUAIFENESIN SUGAR-FREE 100 MG/5 ML UDCUP PO SCH ×2 (07:21→20:34)
[2021-05-27] MEDS: IRON SUCROSE COMPLEX 100 MG in 0.9%NACL 50ML 50 ML IV SCH (07:22)
[2021-05-27] MEDS: INSULIN HUMULIN R 100 UNIT/ML 3ML SQ SCH ×3 (07:24→16:49)
[2021-05-27 07:42] VITALS: BP 121/50
[2021-05-27] MEDS: AMIODARONE 200 MG TABLET PO SCH ×2 (11:13→20:34)
[2021-05-27] MEDS ORDERED: AMIODARONE 200 MG TABLET PO ONE (11:30)
[2021-05-27 11:59] VITALS: BP 110/43
[2021-05-27 16:00] VITALS: BP 133/71
[2021-05-27 19:35] VITALS: BP 122/56
[2021-05-27] MEDS: ATORVASTATIN 20 MG TABLET PO SCH (20:34)
[2021-05-27 23:57] VITALS: BP 101/56
[2021-05-28 03:45] VITALS: BP 110/56
[2021-05-28 04:21] LABS: HEMATOCRIT 26.3 % (42-54); MEAN CORPUSCULAR HGB CONC 33.1 g/dL (32.0-36.0); MEAN CORPUSCULAR VOLUME 99.6 fL (79-99); RED BLOOD CELL COUNT(AUTO) 2.64 MIL/uL (4.50-6.20); RED CELL DISTRIBUTION WIDTH 17.4 % (11.0-15.5); WHITE BLOOD COUNT (AUTO) 10.3 K/uL (4.8-10.8)
[2021-05-28 04:34] LABS: CREATININE 2.3 mg/dL (0.5-1.5); POTASSIUM 3.6 mmol/L (3.5-5.1)
[2021-05-28] MEDS: FUROSEMIDE 20MG VIAL IV SCH ×2 (06:07→16:35)
[2021-05-28] MEDS: INSULIN HUMULIN R 100 UNIT/ML 3ML SQ SCH ×3 (07:30→16:25)
[2021-05-28 08:00] VITALS: BP 130/72
[2021-05-28] MEDS: AMIODARONE 200 MG TABLET PO SCH ×2 (08:53→21:09)
[2021-05-28] MEDS: METOPROLOL TARTRATE 25 MG TAB PO SCH ×4 (08:54→21:09)
[2021-05-28] MEDS: SODIUM BICARBONATE 650 MG TAB PO SCH (09:00)
[2021-05-28] MEDS: CETIRIZINE HCL 5 MG TABLET PO SCH (10:19)
[2021-05-28] MEDS: FERROUS SULFATE 325 MG TABLET.DR PO SCH ×2 (10:19→16:36)
[2021-05-28] MEDS: GUAIFENESIN SUGAR-FREE 100 MG/5 ML UDCUP PO SCH ×2 (10:20→21:09)
[2021-05-28 12:00] VITALS: BP 123/56
[2021-05-28 16:00] VITALS: BP 126/49
[2021-05-28 20:10] VITALS: BP 118/53
[2021-05-28] MEDS ORDERED: APIXABAN 2.5 MG TABLET PO SCH (21:00)
[2021-05-28] MEDS: ATORVASTATIN 20 MG TABLET PO SCH (21:09)
[2021-05-28 23:36] VITALS: BP 121/51
[2021-05-29 03:56] VITALS: BP 103/50
[2021-05-29 04:18] LABS: HEMATOCRIT 27.5 % (42-54); MEAN CORPUSCULAR HEMOGLOBIN 32.4 pg (27.0-33.0); MEAN CORPUSCULAR HGB CONC 33.1 g/dL (32.0-36.0); MEAN CORPUSCULAR VOLUME 97.9 fL (79-99); PLATELET COUNT (AUTO) 123 K/uL (130-400); RED BLOOD CELL COUNT(AUTO) 2.81 MIL/uL (4.50-6.20); RED CELL DISTRIBUTION WIDTH 16.8 % (11.0-15.5); WHITE BLOOD COUNT (AUTO) 10.8 K/uL (4.8-10.8)
[2021-05-29 04:33] LABS: CREATININE 2.4 mg/dL (0.5-1.5); POTASSIUM 3.5 mmol/L (3.5-5.1)
[2021-05-29] MEDS: FUROSEMIDE 20MG VIAL IV SCH ×2 (05:28→17:24)
[2021-05-29 05:42] LABS: BAND NEUTROPHILS % (MANUAL) 1 % (0-2); BASOPHILS % (MANUAL) 1 % (0-2); EOSINOPHILS % (MANUAL) 2 % (1-6); LYMPHOCYTES % (MANUAL) 31 % (22-44); MONOCYTES % (MANUAL) 8 % (2-9); SEGMENTED NEUTROPHILS % 57 % (40-70)
[2021-05-29 05:43] LABS: MAN.DIFF COMMENT-IMPRESSION MANUAL DIFFERENTIAL
[2021-05-29 05:44] LABS: PLATELET MORPHOLOGY COMMENT ADEQUATE
[2021-05-29] MEDS: INSULIN HUMULIN R 100 UNIT/ML 3ML SQ SCH ×3 (06:38→17:00)
[2021-05-29 07:38] VITALS: BP 131/50
[2021-05-29] MEDS: FERROUS SULFATE 325 MG TABLET.DR PO SCH ×2 (08:00→17:24)
[2021-05-29] MEDS: GUAIFENESIN SUGAR-FREE 100 MG/5 ML UDCUP PO SCH ×2 (10:31→20:12)
[2021-05-29] MEDS: PANTOPRAZOLE 40 MG TAB DR PO SCH (10:31)
[2021-05-29] MEDS: AMIODARONE 200 MG TABLET PO SCH ×2 (10:31→20:12)
[2021-05-29] MEDS: SODIUM BICARBONATE 650 MG TAB PO SCH (10:32)
[2021-05-29] MEDS: CETIRIZINE HCL 5 MG TABLET PO SCH (10:32)
[2021-05-29] MEDS: METOPROLOL TARTRATE 25 MG TAB PO SCH ×3 (10:32→20:12)
[2021-05-29 11:50] VITALS: BP 140/50
[2021-05-29] MEDS ORDERED: ASPIRIN 81 MG EC TAB PO ONE (12:00)
[2021-05-29] MEDS: ASPIRIN 81 MG EC TAB PO SCH (13:33)
[2021-05-29 16:17] VITALS: BP 112/44
[2021-05-29] MEDS: ATORVASTATIN 20 MG TABLET PO SCH (20:12)
[2021-05-29 20:20] VITALS: BP 131/60
[2021-05-29 23:49] VITALS: BP 98/66
[2021-05-30 03:53] VITALS: BP 106/73
[2021-05-30] MEDS: FUROSEMIDE 20MG VIAL IV SCH (06:07)
[2021-05-30 06:38] LABS: BASOPHILS % (AUTO) 0.5 % (0.0-5.0); EOSINOPHILS % (AUTO) 1.5 % (0.0-8.0); HEMATOCRIT 30.9 % (42-54); MEAN CORPUSCULAR HEMOGLOBIN 32.7 pg (27.0-33.0); MEAN CORPUSCULAR HGB CONC 33.3 g/dL (32.0-36.0); MEAN CORPUSCULAR VOLUME 98.1 fL (79-99); MONOCYTES % (AUTO) 7.7 % (3.0-13.0); NEUTROPHILS % (AUTO) 69.9 % (40.0-77.0); PLATELET COUNT (AUTO) 127 K/uL (130-400); RED BLOOD CELL COUNT(AUTO) 3.15 MIL/uL (4.50-6.20); RED CELL DISTRIBUTION WIDTH 16.8 % (11.0-15.5)
[2021-05-30 06:52] LABS: CREATININE 2.6 mg/dL (0.5-1.5); POTASSIUM 3.3 mmol/L (3.5-5.1)
[2021-05-30] MEDS: INSULIN HUMULIN R 100 UNIT/ML 3ML SQ SCH ×3 (07:30→16:43)
[2021-05-30 08:00] VITALS: BP 115/58
[2021-05-30] MEDS: CETIRIZINE HCL 5 MG TABLET PO SCH (09:57)
[2021-05-30] MEDS: AMIODARONE 200 MG TABLET PO SCH ×2 (09:57→21:28)
[2021-05-30] MEDS: FERROUS SULFATE 325 MG TABLET.DR PO SCH ×2 (09:57→16:39)
[2021-05-30] MEDS: PANTOPRAZOLE 40 MG TAB DR PO SCH (09:57)
[2021-05-30] MEDS: ASPIRIN 81 MG EC TAB PO SCH (09:57)
[2021-05-30] MEDS: GUAIFENESIN SUGAR-FREE 100 MG/5 ML UDCUP PO SCH ×2 (09:57→21:28)
[2021-05-30] MEDS: METOPROLOL TARTRATE 25 MG TAB PO SCH ×3 (09:58→21:28)
[2021-05-30] MEDS: SODIUM BICARBONATE 650 MG TAB PO SCH (09:58)
[2021-05-30 11:36] VITALS: BP 118/39
[2021-05-30] MEDS ORDERED: EPOE10008 SQ (13:06)
[2021-05-30] MEDS ORDERED: INSU100V3 SQ (13:06)
[2021-05-30] MEDS ORDERED: FURO20TA6 PO (13:06)
[2021-05-30] MEDS ORDERED: SODI650T PO (13:06)
[2021-05-30] MEDS ORDERED: AMIO200T44 PO (13:06)
[2021-05-30] MEDS ORDERED: PANT40TA PO (13:06)
[2021-05-30] MEDS ORDERED: METO25 PO (13:06)
[2021-05-30] MEDS ORDERED: METO5 PO (13:06)
[2021-05-30 15:53] VITALS: BP 118/47
[2021-05-30] MEDS: ATORVASTATIN 20 MG TABLET PO SCH (21:28)
[2021-05-31] MEDS ORDERED: FUROSEMIDE 20 MG TABLET PO SCH (09:00)
== END 2021-05-31 00:20 | DRG 393 ==
LOC: EDH 17:09 → EDHIP 21:53 → 4CH 05-23 22:24
PROVIDERS: ADMIT Internal Medicine; ATTEND Internal Medicine
PROC: 30233N1 Transfusion of Nonautologous Red Blood Cells into Peripheral Vein, Percutaneous Approach (ICD-10-PCS; principal; 2021-05-22)
PROC: 0DJ08ZZ Inspection of Upper Intestinal Tract, Via Natural or Artificial Opening Endoscopic (ICD-10-PCS; 2021-05-24)
PROC: 0DJD8ZZ Inspection of Lower Intestinal Tract, Via Natural or Artificial Opening Endoscopic (ICD-10-PCS; 2021-05-25)
PROC: 0DBN8ZX Excision of Sigmoid Colon, Via Natural or Artificial Opening Endoscopic, Diagnostic (ICD-10-PCS; 2021-05-26)
DX: K63.3 Ulcer of intestine (principal); I21.4 Non-ST elevation (NSTEMI) myocardial infarction; I50.43 Acute on chronic combined systolic (congestive) and diastolic (congestive) heart failure; D62 Acute posthemorrhagic anemia; I13.0 Hypertensive heart and chronic kidney disease with heart failure and stage 1 through stage 4 chronic kidney disease, or unspecified chronic kidney disease; N18.4 Chronic kidney disease, stage 4 (severe); D68.9 Coagulation defect, unspecified; E87.0 Hyperosmolality and hypernatremia; N17.9 Acute kidney failure, unspecified; K92.1 Melena; E87.5 Hyperkalemia; I48.0 Paroxysmal atrial fibrillation; E11.22 Type 2 diabetes mellitus with diabetic chronic kidney disease; D53.9 Nutritional anemia, unspecified; Z20.822 Contact with and (suspected) exposure to COVID-19; D69.6 Thrombocytopenia, unspecified; D72.829 Elevated white blood cell count, unspecified; E03.9 Hypothyroidism, unspecified; E78.00 Pure hypercholesterolemia, unspecified; E78.5 Hyperlipidemia, unspecified; E88.09 Other disorders of plasma-protein metabolism, not elsewhere classified; I25.10 Atherosclerotic heart disease of native coronary artery without angina pectoris; I35.0 Nonrheumatic aortic (valve) stenosis; I45.10 Unspecified right bundle-branch block; N26.1 Atrophy of kidney (terminal); N40.0 Benign prostatic hyperplasia without lower urinary tract symptoms; D50.9 Iron deficiency anemia, unspecified; R62.7 Adult failure to thrive; Z68.20 Body mass index [BMI] 20.0-20.9, adult; I25.2 Old myocardial infarction; Z79.01 Long term (current) use of anticoagulants; Z86.718 Personal history of other venous thrombosis and embolism; Z86.73 Personal history of transient ischemic attack (TIA), and cerebral infarction without residual deficits; Z82.3 Family history of stroke; Z82.49 Family history of ischemic heart disease and other diseases of the circulatory system
CPT/HCPCS: 36415; 43235; 45378; 45380; 70450; 71045; 76705; 80048; 80053; 81001; 82270; 82550; 82607; 82728; 82746; 82948; 83036; 83540; 83550; 83605; 83735; 83874; 83880; 83883; 84100; 84439; 84443; 84481; 84484; 85025; 85027; 85610; 85730; 86334; 86850; 86900; 86901; 86923; 87635; 93005; 97039; A4606; C9113; G0378; J1756; J1815; J1940; J2704; J3475; J3490; J7030; J7040; P9016